=== PATIENT | female | born 1990 | race Two or more races ===

== ENCOUNTER 2020-05-22 05:16 | Inpatient (IN) | payer BC, OTHER ==
[~2020-05-22] VITALS: Ht 167.6 cm; Wt 101.8 kg
[2020-05-22] MEDS: LACTATED RINGERS 1,000 ML IV SCH ×3 (11:10→18:58)
[2020-05-22] MEDS ORDERED: OXYTOCIN 30U/ 0.9% NaCL 500ML 500 ML ONE ×2 (11:12→18:55)
[2020-05-22] MEDS ORDERED: NEWBORN KIT ONE (11:12)
[2020-05-22 11:24] VITALS: BP 126/80
[2020-05-22] MEDS ORDERED: FENTANYL PF 100 MCG/2ML IV PRN (11:30)
[2020-05-22] MEDS ORDERED: OXYTOCIN 30U/ 0.9% NaCL 500ML 500 ML IV PRN (11:30)
[2020-05-22] MEDS ORDERED: TERBUTALINE 1 MG/ML, 1ML SQ PRN (11:30)
[2020-05-22] MEDS ORDERED: TERBUTALINE 1 MG/ML, 1ML IVPush PRN (11:30)
[2020-05-22] MEDS ORDERED: FENTANYL PF 100 MCG/2ML IVPush PRN (11:30)
[2020-05-22] MEDS ORDERED: CALCIUM CARBONATE 500 MG TAB.CHEW PO PRN (11:30)
[2020-05-22] MEDS ORDERED: D5%-LACTATED RINGERS 1,000 ML IV SCH (11:30)
[2020-05-22] MEDS ORDERED: ONDANSETRON 2MG/ML, 2ML IVPush PRN ×2 (11:30→14:30)
[2020-05-22] MEDS ORDERED: OXYTOCIN 30U/ 0.9% NaCL 500ML 500 ML IV ONE (11:30)
[2020-05-22 12:13] LABS: BASOPHILS % (AUTO) 0 % (0-1); EOSINOPHILS % (AUTO) 0 % (1-7); LYMPHOCYTES % (AUTO) 21 % (22-44); MEAN CORPUSCULAR HEMOGLOBIN 29.7 pg (27.0-34.8); MEAN CORPUSCULAR HGB CONC 33.5 g/dL (32.4-35.8); MEAN PLATELET VOLUME 9.9 fL (7.4-10.4); MONOCYTES % (AUTO) 6 % (2-9); NEUTROPHILS % (AUTO) 73 % (42-75); PLATELET COUNT 200 x10^3/uL (130-400); RED BLOOD COUNT 3.81 x10^6/uL (3.82-5.3); RED CELL DISTRIBUTION WIDTH 13.4 % (9.6-15.2)
[2020-05-22 12:15] LABS: MD NO
[2020-05-22] MEDS ORDERED: LIDOCAINE/PF 1.5%-EPI 1:200K, 30ML ONE (13:54)
[2020-05-22] MEDS ORDERED: FENTANYL/BUPIV./NS/PF 250 ML EPIDCONT ONE (13:54)
[2020-05-22] MEDS ORDERED: BUPIVACAINE 0.25% ONE (13:54)
[2020-05-22] MEDS ORDERED: LIDOCAINE 1%, 20ML ONE (13:54)
[2020-05-22] MEDS ORDERED: FENTANYL/BUPIV./NS/PF 250 ML EPIDCONT SCH (14:30)
[2020-05-22] MEDS ORDERED: LACTATED RINGERS 1,000 ML IV SCH (14:30)
[2020-05-22] MEDS ORDERED: EPHEDRINE 50 MG/ML, 1ML IVPush PRN (14:30)
[2020-05-22] MEDS ORDERED: LACTATED RINGERS 1,000 ML IVBOLUS PRN (14:30)
[2020-05-22] MEDS ORDERED: NALOXONE 0.4 MG/ML, 1ML IVPush PRN (14:30)
[2020-05-22] MEDS ORDERED: DIPHENHYDRAMINE 50 MG/ML, 1ML IVPush PRN (14:30)
[2020-05-22] MEDS ORDERED: ONDANSETRON 2MG/ML, 2ML ONE (17:09)
[2020-05-22] MEDS ORDERED: LACTATED RINGERS 1,000 ML INTUTE SCH (18:00)
[2020-05-22] MEDS ORDERED: LACTATED RINGERS 1,000 ML INTUTE PRN (18:00)
[2020-05-22] MEDS ORDERED: OXYcodone/APAP 5/325MG TABLET PO PRN (18:30)
[2020-05-22] MEDS ORDERED: SIMETHICONE 80 MG CHEW TAB PO PRN (18:30)
[2020-05-22] MEDS ORDERED: ACETAMINOPHEN 325 MG TABLET PO PRN (18:30)
[2020-05-22] MEDS ORDERED: DIPH,PERTUSS(ACELL),TET VAC/PF NC IM-VACC PRN (18:30)
[2020-05-22] MEDS ORDERED: MISOPROSTOL 200 MCG TABLET PR PRN (18:30)
[2020-05-22] MEDS ORDERED: CARBOPROST TROMETHAMINE 250 MCG/ML, 1ML IM PRN (18:30)
[2020-05-22] MEDS ORDERED: METHYLERGONOVINE 0.2 MG/ML IM PRN (18:30)
[2020-05-22] MEDS: OXYTOCIN 30U/ 0.9% NaCL 500ML 500 ML IV SCH (18:57)
[2020-05-22] MEDS ORDERED: IBUPROFEN 600 MG TABLET ONE (19:18)
[2020-05-22] MEDS: IBUPROFEN 600 MG TABLET PO PRN (19:20)
[2020-05-22] MEDS ORDERED: DEXTROSE 47%, 15GM GEL ONE (19:56)
[2020-05-22 21:15] VITALS: BP 110/71
[2020-05-23 00:35] VITALS: BP 113/74
[2020-05-23] MEDS: IBUPROFEN 600 MG TABLET PO PRN ×4 (01:29→19:56)
[2020-05-23 02:26] LABS: BASOPHILS % (AUTO) 0 % (0-1); EOSINOPHILS % (AUTO) 0 % (1-7); LYMPHOCYTES % (AUTO) 17 % (22-44); MEAN CORPUSCULAR HEMOGLOBIN 29.9 pg (27.0-34.8); MEAN CORPUSCULAR HGB CONC 33.8 g/dL (32.4-35.8); MEAN PLATELET VOLUME 10.1 fL (7.4-10.4); MONOCYTES % (AUTO) 8 % (2-9); NEUTROPHILS % (AUTO) 75 % (42-75); PLATELET COUNT 168 x10^3/uL (130-400); RED BLOOD COUNT 3.03 x10^6/uL (3.82-5.3); RED CELL DISTRIBUTION WIDTH 13.2 % (9.6-15.2)
[2020-05-23 02:29] LABS: MD NO
[2020-05-23 04:00] VITALS: BP 121/75
[2020-05-23] MEDS: OXYTOCIN 30U/ 0.9% NaCL 500ML 500 ML IV SCH ×3 (04:30→23:49)
[2020-05-23] MEDS: OXYcodone/APAP 5/325MG TABLET PO PRN ×4 (05:13→19:56)
[2020-05-23] MEDS: PRENATAL VIT/IRON/FA 1 EACH TABLET PO SCH (08:11)
[2020-05-23] MEDS: DOCUSATE 100 MG CAPSULE PO PRN ×2 (08:11→19:57)
[2020-05-23 08:20] VITALS: BP 97/62
[2020-05-23 12:40] VITALS: BP 112/67
[2020-05-23 16:20] VITALS: BP 109/67
[2020-05-23 20:26] VITALS: BP 120/76
[2020-05-24] MEDS: IBUPROFEN 600 MG TABLET PO PRN ×2 (01:33→08:51)
[2020-05-24] MEDS: OXYcodone/APAP 5/325MG TABLET PO PRN ×3 (01:33→11:06)
[2020-05-24 08:35] VITALS: BP 106/66
[2020-05-24] MEDS: DOCUSATE 100 MG CAPSULE PO PRN (08:52)
[2020-05-24] MEDS: PRENATAL VIT/IRON/FA 1 EACH TABLET PO SCH (08:55)
[2020-05-24] MEDS: OXYTOCIN 30U/ 0.9% NaCL 500ML 500 ML IV SCH (10:30)
== END 2020-05-24 11:59 | disposition home or self-care (01) | DRG 807 ==
LOC: LDIP 11:10 → 2NW 21:14
PROVIDERS: ADMIT Obstetrics & Gynecology Maternal & Fetal Medicine; ATTEND Obstetrics & Gynecology Maternal & Fetal Medicine
PROC: 10E0XZZ Delivery of Products of Conception, External Approach (ICD-10-PCS; principal; 2020-05-22)
PROC: 3E033VJ Introduction of Other Hormone into Peripheral Vein, Percutaneous Approach (ICD-10-PCS; 2020-05-22)
PROC: 3E0R3BZ Introduction of Anesthetic Agent into Spinal Canal, Percutaneous Approach (ICD-10-PCS; 2020-05-22)
PROC: 00HU33Z Insertion of Infusion Device into Spinal Canal, Percutaneous Approach (ICD-10-PCS; 2020-05-22)
DX: O62.2 Other uterine inertia (principal); Z37.0 Single live birth; Z3A.40 40 weeks gestation of pregnancy
CPT/HCPCS: 36415; J3490; 82962; 85025; 86592; 86850; 86900; 87635; G0378; J2405; J2590; J3010; J7120